=== PATIENT | female | born 1950 | race Caucasian/White ===

== ENCOUNTER → 2021-01-19 | Outpatient (CLI) | payer MEDICAID, MEDICARE ==
[~2021-01-19] MED LIST: CATHETER FLUSH 10 ML SYR IV PRN; HOLD METFORMIN - RECEIVED CONTRAST 20 ML VIAL IV SCH; IOHEXOL 350 MG/ML 100 ML (OMNIPAQUE 350) VIAL IV ONE; NS 100 ML (IVPB) BAG IV ONE
[2021-01-19 13:46] LABS: ALBUMIN 4.5 GM/DL (3.2-4.5); BILIRUBIN,TOTAL 0.2 MG/DL (0.1-1.0); CALCIUM 9.5 MG/DL (8.5-10.1); CREATININE SERUM 0.93 MG/DL (0.60-1.30); POTASSIUM 4.6 MMOL/L (3.6-5.0); TOTAL PROTEIN 7.3 GM/DL (6.4-8.2)
--- NOTE | 2021-01-19 16:11 | Diagnostic Imaging Report ---
PROCEDURE: CT abdomen and pelvis with and without contrast. TECHNIQUE: Precontrast acquisitions were acquired through the abdomen and pelvis. Multiple contiguous axial images were obtained through the abdomen and pelvis after the administration of intravenous contrast. Auto Exposure Controls were utilized during the CT exam to meet ALARA standards for radiation dose reduction. INDICATION: Abdominal pain, bleeding. COMPARISON: No priors. FINDINGS: There are nonobstructing bilateral kidney stones present but no hydronephrosis. No perinephric or periureteric edema. Some ectasia in the extrahepatic bile ducts which likely are senescent and postcholecystectomy etiology. No liver mass. The spleen and adrenals are negative. The pancreas is unremarkable. There is elevated colonic fecal load but no bowel obstruction or focal impaction. No pericolonic or perienteric edema. No focal inflammatory process. No ascites, abscess, hematoma or acute fluid collection. The atherosclerotic aorta is patent and nonaneurysmal. IMPRESSION: Nonobstructing nephrolithiasis. Mild constipation suggested. No inflammatory process, obstructive features or acute abnormalities. Some ectasia of the extrahepatic bile ducts likely on a postcholecystectomy and senescent basis with no visualized stone or intrahepatic dilatation. Dictated by: Dictated on workstation # [id number]
--- NOTE | 2021-01-19 16:47 | Diagnostic Imaging Report ---
PROCEDURE: Pelvic comp/transvaginal sonogram. TECHNIQUE: Complete transabdominal and transvaginal pelvic ultrasound was performed. In addition, limited pelvic Doppler was performed. INDICATION: Bleeding. FINDINGS: Uterus is small measuring 3.4 x 3.2 x 1.5 cm. Endometrium is thin at 2 mm. No myometrial mass is detected. Ovaries cannot be visualized. No adnexal mass or free fluid is detected. IMPRESSION: Nonvisualized ovaries. No other abnormality is detected. Dictated by: Dictated on workstation # [id number]
== END ==
LOC: LAB FS 12:54
PROVIDERS: ATTEND Nurse Practitioner
DX: N20.0 Calculus of kidney (principal); K59.00 Constipation, unspecified; K83.8 Other specified diseases of biliary tract
CPT/HCPCS: 36415; 74178; 76830; 76856; 80053

== ENCOUNTER 2021-09-30 14:42 | Emergency (ER) | payer MEDICARE, MEDICAID ==
[2021-09-30] MEDS ORDERED: NS IV 1000 ML 1,000 ML IV STA (15:02)
--- NOTE | 2021-09-30 15:08 | ED General ---
General Chief Complaint: General Problems/Pain Stated Complaint: GEN WEAKNESS Nursing Triage Note: Patient reports she was shopping and her legs became weak and shaky. She reports his has happened in the past, states she has had orthostatic hypotension and electrolyte abnormalities. [facility] reports patient's blood pressures ranged from 70s-90s systolic on scene. Source of Information: Patient History of Present Illness Date Seen by Provider: Sep 30, 2021 Time Seen by Provider: 14:46 Initial Comments 70-year-old female presenting by [facility] with complaints of fatigue and legs feeling shaky and weak. She states that she was shopping and when she tried to go back to her vehicle she felt like her legs were becoming weak and shaky. She was too weak and shaky to get up into her SUV. She states she has a history of orthostatic hypotension and electrolyte abnormalities in the past. She denies any vomiting or diarrhea. She has had urinary frequency. She denies any diarrhea or blood in her stools. She does have a history of Crohn's. She denies having any fever or chills. Timing/Duration: 1 Hour Severity: Moderate Modifying Factors: worse with Movement Associated Systoms: No Chest Pain, No Cough, No Diaphoresis, No Fever/Chills, No Headaches, No Loss of Appetite; Malaise; No Nausea/Vomiting, No Seizure, No Shortness of Air, No Syncope; Weakness Allergies and Home Medications Allergies Coded Allergies: No Known Drug Allergies (Unverified , 01/19/21) Patient Home Medication List Home Medication List Reviewed: Yes Review of Systems Review of Systems Constitutional: see HPI EENTM: no symptoms reported Respiratory: no symptoms reported Cardiovascular: no symptoms reported Gastrointestinal: no symptoms reported Genitourinary: No dysuria; frequency Musculoskeletal: no symptoms reported Skin: change in color (Chronic discolorations to her forearms from bruising due to her Crohn's medications) Psychiatric/Neurological: Denies Headache; Weakness (General weakness worse in her legs) Past Fghxafu-[id number]-Ubjqlv Hx Past Medical History Surgery/Hospitalization HX: Hypertension, orthostatic hypotension, Crohn's Physical Exam Vital Signs Vital Signs - First Documented 09/30/21 14:52 Temp 36.2 Pulse 81 Resp 16 B/P (MAP) 95/63 (74) Pulse Ox 94 O2 Delivery Room Air Capillary Refill : Less Than 3 Seconds Height, Weight, BMI Height: '" Weight: lbs. oz. kg; BMI Method: General Appearance: No Apparent Distress, Chronically ill HEENT: PERRL/EOMI, Pharynx Normal Neck: Full Range of Motion, Normal Inspection, Non Tender, Supple Respiratory: Chest Non Tender, Lungs Clear, Normal Breath Sounds, No Accessory Muscle Use, No Respiratory Distress Cardiovascular: Regular Rate, Rhythm, Normal Peripheral Pulses Gastrointestinal: Normal Bowel Sounds, No Pulsatile Mass, Non Tender, Soft Extremity: Normal Capillary Refill, No Pedal Edema Neurologic/Psychiatric: Alert, Oriented x3, heddler tier II-XII Norm as Tested Skin: Normal Color, Warm/Dry Progress/Results/Core Measures Suspected Sepsis SIRS Temperature: Pulse: 81 Respiratory Rate: 16 Laboratory Tests 09/30/21 15:13: White Blood Count 5.0 Blood Pressure 95 /63 Mean: 74 Laboratory Tests 09/30/21 15:13: Creatinine 1.33H, Platelet Count 297, Total Bilirubin 0.2 Results/Orders Lab Results Laboratory Tests Test 09/30/21 15:13 09/30/21 16:20 Range/Units White Blood Count 5.0 4.3-11.0 10^3/uL Red Blood Count 3.36 L 3.80-5.11 10^6/uL Hemoglobin 11.6 11.5-16.0 g/dL Hematocrit 35 35-52 % Mean Corpuscular Volume 105 H 80-99 fL Mean Corpuscular Hemoglobin 35 H 25-34 pg Mean Corpuscular Hemoglobin Concent 33 32-36 g/dL Red Cell Distribution Width 15.3 H 10.0-14.5 % Platelet Count 297 130-400 10^3/uL Mean Platelet Volume 8.6 L 9.0-12.2 fL Immature Granulocyte % (Auto) 1 % Neutrophils (%) (Auto) 74 42-75 % Lymphocytes (%) (Auto) 20 12-44 % Monocytes (%) (Auto) 5 0-12 % Eosinophils (%) (Auto) 1 0-10 % Basophils (%) (Auto) 1 0-10 % Neutrophils # (Auto) 3.7 1.8-7.8 X 10^3 Lymphocytes # (Auto) 1.0 1.0-4.0 X 10^3 Monocytes # (Auto) 0.2 0.0-1.0 X 10^3 Eosinophils # (Auto) 0.0 0.0-0.3 10^3/uL Basophils # (Auto) 0.0 0.0-0.1 10^3/uL Immature Granulocyte # (Auto) 0.0 0.0-0.1 10^3/uL Sodium Level 138 135-145 MMOL/L Potassium Level 4.4 3.6-5.0 MMOL/L Chloride Level 103 98-107 MMOL/L Carbon Dioxide Level 25 21-32 MMOL/L Anion Gap 10 5-14 MMOL/L Blood Urea Nitrogen 26 H 7-18 MG/DL Creatinine 1.33 H 0.60-1.30 MG/DL Estimat Glomerular Filtration Rate 39 BUN/Creatinine Ratio 20 Glucose Level 86 70-105 MG/DL Calcium Level 9.1 8.5-10.1 MG/DL Corrected Calcium 9.3 8.5-10.1 MG/DL Total Bilirubin 0.2 0.1-1.0 MG/DL Aspartate Amino Transf (AST/SGOT) 10 5-34 U/L Alanine Aminotransferase (ALT/SGPT) 7 0-55 U/L Alkaline Phosphatase 106 40-136 U/L Total Protein 6.2 L 6.4-8.2 GM/DL Albumin 3.8 3.2-4.5 GM/DL Urine Color YELLOW Urine Clarity CLEAR Urine pH 6.0 5-9 Urine Specific [place] 1.020 1.016-1.022 Urine Protein NEGATIVE NEGATIVE Urine Glucose (UA) NEGATIVE NEGATIVE Urine Ketones NEGATIVE NEGATIVE Urine Nitrite NEGATIVE NEGATIVE Urine Bilirubin NEGATIVE NEGATIVE Urine Urobilinogen 0.2 < = 1.0 MG/DL Urine Leukocyte Esterase NEGATIVE NEGATIVE Urine RBC (Auto) TRACE-I H NEGATIVE Urine RBC 0-2 /HPF Urine WBC RARE /HPF Urine Squamous Epithelial Cells 0-2 /HPF Urine Crystals NONE /LPF Urine Bacteria TRACE /HPF Urine Casts NONE /LPF Urine Mucus NEGATIVE /LPF Urine Culture Indicated NO My Orders Orders - GISELLE DELGADO MD Comprehensive Metabolic Panel (09/30/21 15:02) Ua Culture If Indicated (09/30/21 15:02) Ed Iv/Invasive Line Start (09/30/21 15:02) Cbc With Automated Diff (09/30/21 15:02) Ns Iv 1000 Ml (Sodium Chloride 0.9%) (09/30/21 15:02) Vital Signs/I&O 09/30/21 09/30/21 14:52 17:03 Temp 36.2 Pulse 81 71 Resp 16 16 B/P (MAP) 95/63 (74) 122/81 Pulse Ox 94 95 O2 Delivery Room Air Room Air Capillary Refill : Less Than 3 Seconds Blood Pressure Mean: 74 Progress Note #1: Progress Note Obtain basic labs as well as urinalysis to look for signs of infection, electrolyte imbalance, urinary tract infection, anemia. Give IV fluids for hydration and to help with blood pressure. Progress Note #2: Progress Note Labs did not show any acute significant abnormality to account for her complaint of weakness. Her urine was not showing infection. Her blood pressure did improve as she was given fluids here in the ED. She reported being hungry as the fluids infused so she had eaten part of a candy bar that she had in her purse. Counseled patient on findings for some dehydration along with the lisinopril causing low blood pressure. Encouraged to drink plenty of fluids and stay well-hydrated. Counseled that she could consider holding the lisinopril for 24 hours to let her blood pressure come up more. Follow-up with nurse practitioner Cori BECKHAM at the clinic in [place] for continued concerns Departure Impression Primary Impression: Hypotension Qualified Codes: I95.9 - Hypotension, unspecified Additional Impressions: General weakness Dehydration Disposition: 01 HOME, SELF-CARE Condition: Improved Departure-Patient Inst. Decision time for Depature: 16:57 Referrals: CORI BECKHAM (PCP) Primary Care Physician [facility] (Family) Primary Care Physician Patient Instructions: Dehydration, Adult ED, Fatigue ED, Weakness ED Add. Discharge Instructions: Stay well hydrated and consider holding your Lisinopril for 24 hours. Check back with Cori in the [place] clinic about your weakness and fatigue. Your labs and urine just showed some mild dehydration and your blood pressure has improved with treatment in the ER All discharge instructions reviewed with patient and/or family. Voiced understanding. GISELLE DELGADO MD Sep 30, 2021 15:08
[2021-09-30 15:24] LABS: HEMATOCRIT 35 % (35-52); HEMOGLOBIN 11.6 g/dL (11.5-16.0); MEAN CORPUSCULAR HEMOGLOBIN 35 pg (25-34); MEAN CORPUSCULAR HGB CONC 33 g/dL (32-36); MEAN CORPUSCULAR VOLUME 105 fL (80-99); MEAN PLATELET VOLUME 8.6 fL (9.0-12.2); PLATELET COUNT 297 10^3/uL (130-400)
[2021-09-30 15:25] LABS: BASOPHILS % (AUTO) 1 % (0-10); EOSINOPHILS % (AUTO) 1 % (0-10); LYMPHOCYTES % (AUTO) 20 % (12-44); MONOCYTES # (AUTO) 0.2 X 10^3 (0.0-1.0); MONOCYTES % (AUTO) 5 % (0-12); NEUTROPHILS # (AUTO) 3.7 X 10^3 (1.8-7.8); NEUTROPHILS % (AUTO) 74 % (42-75)
[2021-09-30 15:42] LABS: ALBUMIN 3.8 GM/DL (3.2-4.5); BILIRUBIN,TOTAL 0.2 MG/DL (0.1-1.0); CALCIUM 9.1 MG/DL (8.5-10.1); CREATININE SERUM 1.33 MG/DL (0.60-1.30); POTASSIUM 4.4 MMOL/L (3.6-5.0); TOTAL PROTEIN 6.2 GM/DL (6.4-8.2)
[2021-09-30 16:32] LABS: BILIRUBIN,URINE NEGATIVE (NEGATIVE); CLARITY,URINE CLEAR; COLOR,URINE YELLOW; GLUCOSE, URINE (UA) NEGATIVE (NEGATIVE); KETONES,URINE NEGATIVE (NEGATIVE); LEUKOCYTE ESTERASE ,URINE NEGATIVE (NEGATIVE); NITRITE,URINE NEGATIVE (NEGATIVE); PROTEIN,URINE NEGATIVE (NEGATIVE)
[2021-09-30 16:37] LABS: BACTERIA,URINE TRACE /HPF; RBC,URINE 0-2 /HPF; SQUAMOUS EPITHELIAL CELL,UR 0-2 /HPF; WBC,URINE RARE /HPF
[2021-09-30 17:03] VITALS: BP 122/81
== END 2021-09-30 17:14 | disposition home or self-care (01) ==
LOC: EDUNIT# 14:42 → ER FS 14:43
DX: I95.1 Orthostatic hypotension (principal); E86.0 Dehydration; I10 Essential (primary) hypertension
CPT/HCPCS: 36415; 80053; 81000; 85025

== ENCOUNTER → 2021-11-25 | Outpatient (CLI) | payer MEDICARE, OTHER ==
--- NOTE | 2021-11-25 13:25 | Diagnostic Imaging Report ---
PROCEDURE: CT abdomen and pelvis without contrast. TECHNIQUE: Multiple contiguous axial images were obtained through the abdomen and pelvis without the use of intravenous contrast. Auto Exposure Controls were utilized during the CT exam to meet ALARA standards for radiation dose reduction. INDICATION: Flank pain. Images through the lower thorax reveal low density tissue adjacent to the visualized lower superior vena cava and right atrium. There is mild anterior pericardial fluid or thickening. There is mixed calcified granuloma in the left lower lobe. Below the diaphragm, unenhanced images of liver and spleen reveal no focal abnormality. There is no evidence of pancreatic or adrenal gland abnormality. There are numerous bilateral renal stones measuring up to approximately 0.6 cm in size on the left. There is no evidence of hydronephrosis or hydroureter. There is no evidence of bladder stone. There is a probable cyst in the left ovary measuring 2.5 cm in size. There is no evidence of focal inflammation or organized fluid collection. 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 Clinical correlation would be useful. There is bilateral nephrolithiasis similar to study of 01/19/2021 without evidence of obstructive uropathy or other acute abnormality identified. Dictated by: Dictated on workstation # [id number]
== END ==
LOC: RAD FS 12:31
PROVIDERS: ATTEND Nurse Practitioner Family
DX: N20.0 Calculus of kidney (principal)
CPT/HCPCS: 74176

== ENCOUNTER → 2022-01-20 | Outpatient (CLI) | payer MEDICARE, MEDICAID ==
--- NOTE | 2022-01-20 17:20 | Diagnostic Imaging Report ---
PROCEDURE: MRI right joint lower extremity without contrast. TECHNIQUE: Multiplanar, multisequence non contrast-enhanced MRI of the right lower extremity was accomplished. INDICATION: Right hip and lower back pain. EXAMINATION: Right hip MRI 01/20/2022 FINDINGS: There is focal T2 hyperintensity within the gluteus medius muscle near the insertion at the greater trochanter with high signal surrounding the tendinous insertion itself likely due to a strain. Mild lobular T1 and T2 hypointensity just proximal to the greater trochanter is noted which could represent a small partial tear of the gluteus medius tendon. There is no complete tear appreciated. The hamstrings tendon origins intact. Iliopsoas tendons and musculature unremarkable. Visualized intrapelvic structures demonstrate a cystic lesion in the left adnexa likely an ovarian cyst. This measures 2.3 cm in greatest dimension. Pelvic sonography recommended given patient's age. IMPRESSION: 1. Edema at the greater trochanter surrounding the gluteus medius muscle and tendon likely due to muscular strain or partial tear with a possible small tear of the gluteus medius tendon itself without retraction or complete discontinuity. 2. Cystic lesion in the left adnexa presumably ovarian in nature. Given patient's age, pelvic sonography recommended. Dictated by: Dictated on workstation # [id number]
== END ==
LOC: RAD 13:20
PROVIDERS: ATTEND Nurse Practitioner
DX: N83.8 Other noninflammatory disorders of ovary, fallopian tube and broad ligament (principal); M25.551 Pain in right hip; M54.50 Low back pain, unspecified; R60.0 Localized edema
CPT/HCPCS: 73721